=== PATIENT | male | born 1935 | race Caucasian/White ===

== ENCOUNTER → 2017-10-19 | Outpatient (CLI) | payer OTHER ==
[~2017-10-19] MED LIST: ACET325; ASPI325; ASPI325 PO; ATOR40TA; CITA20 PO; DOXE75C PO; FLUO20; GLIP10 PO; IBUP200; LACT10SY PO; LISI20 PO; METF500 PO; METO50 PO; NIFE30ER; OXYACE5T PO; PIOG15; Simvastatin80 MG PO
== END ==
LOC: PLD 11:13 → LAB SHORT 11:13
DX: L57.0 Actinic keratosis (principal)
CPT/HCPCS: 88305